=== PATIENT | female | born 1995 ===

== ENCOUNTER 2023-09-24 21:42 | Emergency (ER) | payer OTHER, SELFPAY ==
[2023-09-24 21:53] VITALS: BP 112/64; PULSE 73; RESP 18; TEMP 36.4; O2SAT 99
--- NOTE | 2023-09-24 21:54 | ED.GENADULT ---
HPI - General Adult General Chief complaint: Allergic Reaction Stated complaint: allergic reaction/itching Time Seen by Provider: 09/24/23 21:53 History of Present Illness HPI narrative: 27-year-old woman who had an energy pre workout drink approximately 45 minutes prior to arrival. She is started noticing that she was feeling increasingly antsy, itching to her palms and soles and comes in for further evaluation. She notes that about 2 months ago she had a different energy drink with similar findings. Symptoms resolved in a couple of hours. She does not have a history of significant allergy or asthma. There was no respiratory issues she comes in for reassurance and feels symptoms actually seem to be improving slightly at time of arrival in the emergency department Review of Systems Review of Systems Narrative: Pertinent positive and negative findings as per HPI Patient History Social History Smoking Status: Never smoker Exam Narrative Exam Narrative: General: Alert appropriate in no acute distress Respiratory: Able to speak in full sentences, no obvious respiratory distress. Voice is not hoarse, she is able to speak in full sentences, there is no wheeze Skin: No obvious rashes, warm and dry. She is rubbing at her palms as if they are itchy but there is no erythema or hives Neurologic: Grossly intact no obvious asymmetries or abnormalities Psych: appropriate insight and affect, cooperative Initial Vital Signs Initial Vital Signs: Vital Signs Temperature 97.6 F 09/24/23 21:53 Pulse Rate 73 09/24/23 21:53 Respiratory Rate 18 09/24/23 21:53 Blood Pressure 112/64 09/24/23 21:53 Pulse Oximetry 99 09/24/23 21:53 Oxygen Delivery Method Room Air 09/24/23 21:53 Course Orders Ordered: Discontinued Medications Diphenhydramine HCl (Diphenhydramine 25 Mg Tablet) 50 mg PO NOW ONE Stop: 09/24/23 21:58 Last Admin: 09/24/23 22:00 Dose: 50 mg Documented By: Vital Signs Vital signs: Vital Signs - 8 hr 09/24/23 21:53 09/24/23 22:04 Temperature 97.6 F 99.1 F Pulse Rate 73 85 Respiratory Rate 18 18 Blood Pressure 112/64 115/75 Pulse Oximetry 99 98 Oxygen Delivery Method Room Air Room Air Medical Decision Making MDM Narrative Medical decision making narrative: 27-year-old woman presents with itching and an antsy feeling after having an energy drink. She notes she had a similar reaction about 2 months ago with a different brand of energy drink. Symptoms do seem to be improving, she is given 25 mg of oral Benadryl. There was no evidence of significant anaphylaxis, airway involvement or additional concerns that would require further workup, imaging or hospitalization at this time. Suggested that she compare the 2 drinks to see which ingredients are similar as this may well be the 1 to which she is most sensitive. Recommended avoiding energy drinks for the time being. Questions are answered and she is safe for discharge Discharge Plan Departure Patient Disposition: Home Clinical Impression: Allergic reaction Qualifiers: Encounter type: initial encounter Qualified Code(s): T78.40XA - Allergy, unspecified, initial encounter Instructions: DI for Adverse Drug Reaction -- Allergic Activity Restrictions/Additional Instructions: Thank you for coming in tonight I think that you need to avoid energy drinks and pre workout stimulants. You are given 50 mg of Benadryl in the emergency department this evening to help with the itching to your hands in your feet. You may consider comparing the energy drink that cause similar symptoms 2 months ago with a drink from this evening to see which ingredients are common and make sure that you are avoiding those ingredients. At this time, there was no evidence of airway involvement. Your lung sound very normal. I suspect that you will do fine with just the Benadryl to treat this acute reaction. If you find that you are getting worse or develop any new symptoms, please feel free to return to the emergency department for further evaluation. Stand Alone Forms: Patient Portal/API
[2023-09-24] MEDS: diphenhydrAMINE 25 MG TABLET 50 MG PO (22:00)
[2023-09-24 22:04] VITALS: BP 115/75; PULSE 85; RESP 18; TEMP 37.3; O2SAT 98
== END 2023-09-24 22:23 | disposition home or self-care (01) ==
LOC: ED 22:09
PROVIDERS: Emergency Provider Emergency Medicine
DX: T78.40XA Allergy, unspecified, initial encounter (principal)
CPT/HCPCS: 99283